=== PATIENT | female | born 1955 | race African-American/Black ===

== ENCOUNTER 2017-04-29 13:44 | Emergency (ER) | payer MEDICARE, MEDICAID ==
[2017-04-29] MEDS ORDERED: Adenosine 6 MG/2 ML VIAL ONE (13:50)
[2017-04-29] MEDS ORDERED: Sodium Chloride 0.9% 100 ML ONE (13:52)
[2017-04-29] MEDS ORDERED: cefTRIAXone\\ROCEPHIN 2 GM VIAL ONE (13:52)
[2017-04-29] MEDS ORDERED: Lorazepam 2 MG/ML VIAL ONE (14:06)
[2017-04-29] MEDS ORDERED: Fentanyl 100 MCG/2 ML VIAL ONE (14:06)
[2017-04-29 14:07] LABS: #Basophils 0.2 thou/uL (0.0-0.2); #Lymphocytes 1.7 thou/uL (1.20-3.40); #Monocytes 0.5 thou/uL (0.11-0.59); #Neutrophils 5.5 thou/uL (1.40-6.50); %Basophils 2.4 % (0.0-1.0); %Eosinophils 0.2 % (0.0-10.0); %Lymphocytes 21.7 % (21.0-51.0); %Monocytes 6.6 % (0.0-10.0); Hemoglobin 12.4 g/dL (12.0-16.0); Mean Corpuscular HGB CONC 32.4 g/dL (32.0-36.0); Mean Corpuscular Hemoglobin 27.3 pg (27.0-31.0); Mean Corpuscular Volume 84.3 fl (81.0-99.0); Mean Platelet Volume 8.4 fL (7.4-10.4); Platelet Count 291 thou/uL (130-400); RBC Distribution Width 14.4 % (11.5-14.5); Red Blood Cell (RBC) Count 4.55 mill/uL (4.20-5.40)
[2017-04-29 14:11] LABS: INR-International Normal Ratio 1.2; Prothrombin Time 15.5 SEC (12.0-14.7)
[2017-04-29 14:14] LABS: ALT (SGPT) 13 U/L (8-55); AST (SGOT) 21 U/L (5-34); Albumin 3.8 g/dL (3.4-4.8); Alkaline Phosphatase 95 U/L (40-150); Anion Gap 23 mmol/L (10-20); BUN (Urea Nitrogen) 16 mg/dL (9.8-20.1); Bilirubin, Total 0.6 mg/dL (0.2-1.2); CK (CPK) 180 U/L (29-168); Calc. Creatinine Clearance 0 mL/min (70-130); Calcium 8.8 mg/dL (7.8-10.44); Carbon Dioxide 18 mmol/L (23-31); Chloride 101 mmol/L (98-107); Estimated GFR-MDRD 36; Glucose 212 mg/dL (80-115); Potassium 3.8 mmol/L (3.5-5.1); Protein, Total 6.8 g/dL (6.0-8.3); Sodium 138 mmol/L (136-145)
[2017-04-29 14:15] LABS: CKMB 0.9 ng/mL (0-6.6); Troponin I 0.035 ng/mL (< 0.028)
[2017-04-29 14:18] LABS: PTT 27.5 SEC (22.9-36.1)
[2017-04-29 14:27] LABS: Bilirubin Negative (Negative); Blood, Urine Negative (Negative); Clarity Clear (Clear); Glucose, Urine (Dipstick) Negative (Negative); Leukocyte Negative (Negative); Nitrite Negative (Negative); Protein, Urine (Dipstick) Negative (Neg-Trace); Urobilinogen 0.2 mg/dL (0.2-1.0); pH, Urine 5.5 (5.0-9.0)
[2017-04-29 14:28] LABS: Specific Gravity, Urine 1.008 (1.005-1.030)
--- NOTE | 2017-04-29 19:48 | RAD ---
PORTABLE CHEST 04/29/17 An AP portable film at 1346 is compared with a 11/02/16 study done at [facility]. Mild cardiomegaly is present. There appears to be an infiltrate in the right base medially. The jarett ent has been intubated. The tip of the endotracheal tube currently appears to be above the courtney bu t probably just barely. A better centered picture is recommended to recheck it. The left lung is rel atively clear. IMPRESSION: 1. Potential low positioning of the endotracheal tube. 2. Mild cardiomegaly. 3. Right basilar infiltrate medially. POS: HOME
--- NOTE | 2017-04-29 19:50 | CT ---
CT OF THE BRAIN WITHOUT CONTRAST 04/29/[address] was done emergently for mental status changes. The ventricles are normal in size wi th no shift. No intracranial bleeding was noted. There is some motion artifact and streak artifact w hich degrades the images, but no gross stroke, edema, bleed or mass could be seen. The visible paran rainer sinuses are clear. A tiny white dot in the right cerebral peduncle of the mid brain is felt to be more likely artifact than not. IMPRESSION: Mildly limited study showing no acute findings. POS: HOME
== END 2017-04-29 14:53 | disposition short-term general hospital (02) ==
LOC: BURERS 13:44
DX: T67.0XXA Heatstroke and sunstroke, initial encounter (principal); R56.9 Unspecified convulsions; E11.9 Type 2 diabetes mellitus without complications; I10 Essential (primary) hypertension; J45.909 Unspecified asthma, uncomplicated; F31.9 Bipolar disorder, unspecified; F20.9 Schizophrenia, unspecified
CPT/HCPCS: 31500; 36415; 51702; 70450; 71010; 80053; 81003; 82550; 82553; 83605; 84484; 85025; 85610; 85730; 87040; 87077; 87086; 87149; 87186; 93005; 94002; 94760; 96365; 96375; J0153; J0696; J2060; J3010; J7050

== ENCOUNTER 2017-06-08 11:14 | Emergency (ER) | payer MEDICARE, MEDICAID ==
[2017-06-08] MEDS ORDERED: Ibuprofen 800 MG TAB ONE (11:36)
[2017-06-08] MEDS ORDERED: HYDROcodone/Acetaminophen 10/325 mg Tablet ONE (11:36)
--- NOTE | 2017-06-08 13:17 | RAD ---
RIGHT KNEE 4 VIEWS: HISTORY: Injury, right knee pain. FINDINGS/IMPRESSION: There are extensive degenerative changes in the knee joint. A joint effusion is present. No acute fracture or dislocation is identified. POS: [facility]
--- NOTE | 2017-06-08 13:17 | RAD ---
RIGHT HIP 2 VIEWS: HISTORY: Injury, right hip pain. FINDINGS: There are degenerative changes in the right hip joint. No fracture or dislocation is identified. IMPRESSION: No acute finding or dislocation is identified. POS: JACE
== END 2017-06-08 12:29 | disposition home or self-care (01) ==
LOC: BURERS 11:14
DX: M17.11 Unilateral primary osteoarthritis, right knee (principal); M16.11 Unilateral primary osteoarthritis, right hip; I10 Essential (primary) hypertension; J45.909 Unspecified asthma, uncomplicated; F31.9 Bipolar disorder, unspecified; F20.9 Schizophrenia, unspecified; E11.9 Type 2 diabetes mellitus without complications; Z79.84 Long term (current) use of oral hypoglycemic drugs; Z79.899 Other long term (current) drug therapy

== ENCOUNTER 2017-07-17 12:46 | Emergency (ER) | payer MEDICARE, MEDICAID ==
[2017-07-17 13:23] LABS: Bilirubin Negative (Negative); Blood, Urine Negative (Negative); Clarity Cloudy (Clear); Glucose, Urine (Dipstick) Negative (Negative); Leukocyte Large (Negative); Nitrite Positive (Negative); Protein, Urine (Dipstick) Negative (Neg-Trace); Urobilinogen 0.2 mg/dL (0.2-1.0)
[2017-07-17 13:25] LABS: #Basophils 0.1 thou/uL (0.0-0.2); #Eosinphils 0.1 thou/uL (0.0-0.7); #Lymphocytes 1.2 thou/uL (1.20-3.40); #Neutrophils 6.6 thou/uL (1.40-6.50); %Basophils 1.1 % (0.0-1.0); %Eosinophils 0.6 % (0.0-10.0); %Lymphocytes 12.9 % (21.0-51.0); %Neutrophils 74.4 % (42.0-75.0); Hemoglobin 12.1 g/dL (12.0-16.0); Mean Corpuscular HGB CONC 33.4 g/dL (32.0-36.0); Mean Corpuscular Hemoglobin 28.8 pg (27.0-31.0); Mean Corpuscular Volume 86.2 fl (81.0-99.0); Mean Platelet Volume 8.7 fL (7.4-10.4); Platelet Count 248 thou/uL (130-400); RBC Distribution Width 14.4 % (11.5-14.5); White Blood Cell (WBC) Count 8.9 thou/uL (4.8-10.8)
[2017-07-17 13:28] LABS: Specific Gravity, Urine 1.008 (1.005-1.030)
[2017-07-17 13:31] LABS: Bacteria/HPF 2+ HPF (None Seen); Crystals/HPF 1+ AMORPH URATES HPF (Negative); RBC/HPF None Seen HPF (0-3)
[2017-07-17 13:35] LABS: ALT (SGPT) 15 U/L (8-55); AST (SGOT) 16 U/L (5-34); Alkaline Phosphatase 101 U/L (40-150); Anion Gap 19 mmol/L (10-20); BUN (Urea Nitrogen) 30 mg/dL (9.8-20.1); Bilirubin, Total 0.5 mg/dL (0.2-1.2); Calc. Creatinine Clearance 0 mL/min (70-130); Calcium 9.5 mg/dL (7.8-10.44); Carbon Dioxide 23 mmol/L (23-31); Chloride 100 mmol/L (98-107); Estimated GFR-MDRD 40; Globulin 2.9 g/dL (2.4-3.5); Glucose 109 mg/dL (80-115); Potassium 3.6 mmol/L (3.5-5.1); Protein, Total 6.9 g/dL (6.0-8.3); Sodium 138 mmol/L (136-145)
[2017-07-17] MEDS ORDERED: Sodium Chloride 0.9% 100 ML ONE (13:35)
[2017-07-17] MEDS ORDERED: cefTRIAXone\\ROCEPHIN 1 GM VIAL ONE (13:35)
== END 2017-07-17 14:51 | disposition home or self-care (01) ==
LOC: BURERS 12:46
DX: N39.0 Urinary tract infection, site not specified (principal); G93.40 Encephalopathy, unspecified; I10 Essential (primary) hypertension; J45.909 Unspecified asthma, uncomplicated; E11.9 Type 2 diabetes mellitus without complications; F31.9 Bipolar disorder, unspecified; F20.9 Schizophrenia, unspecified
CPT/HCPCS: 36415; 51701; 80053; 81003; 81015; 84443; 85025; 87077; 87086; 87186; 96365; A4353; J0696; J7050

== ENCOUNTER 2017-08-15 19:31 | Emergency (ER) | payer MEDICARE, MEDICAID ==
[2017-08-15 20:14] LABS: Bilirubin Negative (Negative); Blood, Urine Negative (Negative); Clarity Clear (Clear); Glucose, Urine (Dipstick) Negative (Negative); Leukocyte Small (Negative); Nitrite Negative (Negative); Protein, Urine (Dipstick) Negative (Neg-Trace)
[2017-08-15 20:16] LABS: Specific Gravity, Urine 1.006 (1.002-1.036)
[2017-08-15 20:23] LABS: Acanthocytes SLIGHT = 1-5 cells (100X) (None Seen); Elliptocytes SLIGHT = 2-5 cells (100X) (0-1/hpf); Eosinophils 3 % (0-10); Lymphocytes 20 % (21-51); MDiff Complete? YES; Mean Corpuscular HGB CONC 30.6 g/dL (32.0-36.0); Mean Corpuscular Hemoglobin 27.2 pg (27.0-31.0); Mean Corpuscular Volume 88.9 fl (81.0-99.0); Mean Platelet Volume 8.3 fL (7.4-10.4); Monocytes 8 % (0-10); Neutrophil 69 % (42-75); Platelet Count 352 thou/uL (130-400); RBC Distribution Width 14.7 % (11.5-14.5); Red Blood Cell (RBC) Count 4.05 mill/uL (4.20-5.40); Rouleaux Formation MODERATE= 6-15 cells (100X) (None Seen); White Blood Cell (WBC) Count 6.2 thou/uL (4.8-10.8)
[2017-08-15 20:25] LABS: ALT (SGPT) 12 U/L (8-55); AST (SGOT) 19 U/L (5-34); Albumin 3.6 g/dL (3.4-4.8); Alkaline Phosphatase 90 U/L (40-150); Anion Gap 16 mmol/L (10-20); BUN (Urea Nitrogen) 12 mg/dL (9.8-20.1); Bilirubin, Total 0.3 mg/dL (0.2-1.2); Calc. Creatinine Clearance 0 mL/min (70-130); Calcium 9.4 mg/dL (7.8-10.44); Carbon Dioxide 22 mmol/L (23-31); Chloride 107 mmol/L (98-107); Estimated GFR-MDRD 90; Globulin 2.8 g/dL (2.4-3.5); Glucose 105 mg/dL (80-115); Potassium 4.2 mmol/L (3.5-5.1); Protein, Total 6.4 g/dL (6.0-8.3); Sodium 141 mmol/L (136-145)
[2017-08-15 20:25] LABS: Bacteria/HPF 4+ HPF (None Seen); Crystals/HPF None Seen HPF (Negative); Hyaline Casts/LPF NONE SEEN LPF (0-3 Hyaline); Other Casts/LPF None Seen LPF (0-3 Hyaline); Oval Fat Bodies/HPF None Seen HPF (None Seen); RBC/HPF None Seen HPF (0-3); Renal Epithelial None Seen HPF (0-3); Sperm/HPF None Seen HPF (None Seen); Squamous Epithelial 0-3 HPF (0-3); Transitional Epithelial NONE SEEN HPF (0-3); Trichomonas/HPF None Seen HPF (None Seen); Yeast-All Forms None Seen HPF (None Seen)
[2017-08-15] MEDS ORDERED: cefTRIAXone\\ROCEPHIN 1 GM VIAL ONE (20:31)
--- NOTE | 2017-08-15 23:51 | RAD ---
PORTABLE CHEST 08/15/2017 An AP portable film at 2006 hours is compared with a 05/01/2017 study done at [facility]. The heart is enlarged but no more so than before. There are no congestive changes today. No large pleural effusions are present. The prominent perihilar areas, particularly on the right mentioned b efore, are not nearly as much so today. There is still some slight right hilar prominence that woul d ultimately take a CT to completely clear. Nevertheless, the appearance of the chest is much impro thais with respect to the April study. IMPRESSION: Cardiomegaly without congestive change. See other comments above. Overall, the chest is improved dr amatically since April. POS: HOME
== END 2017-08-15 21:09 | disposition home or self-care (01) ==
LOC: BURERS 19:31
DX: N39.0 Urinary tract infection, site not specified (principal); J45.909 Unspecified asthma, uncomplicated; E11.9 Type 2 diabetes mellitus without complications; I10 Essential (primary) hypertension; F31.9 Bipolar disorder, unspecified; F20.9 Schizophrenia, unspecified; Z79.84 Long term (current) use of oral hypoglycemic drugs; Z79.899 Other long term (current) drug therapy
CPT/HCPCS: 51701; 71010; 80053; 81003; 81015; 85025; 87077; 87086; 87186; 96365; J0696

== ENCOUNTER 2017-11-27 09:55 | Emergency (ER) | payer MEDICARE, MEDICAID ==
[2017-11-27 10:31] LABS: Bilirubin Negative (Negative); Blood, Urine Negative (Negative); Clarity Clear (Clear); Glucose, Urine (Dipstick) Negative (Negative); Leukocyte Trace (Negative); Nitrite Negative (Negative); Protein, Urine (Dipstick) Negative (Neg-Trace); Urobilinogen 0.2 mg/dL (0.2-1.0); pH, Urine 5.5 (5.0-9.0)
[2017-11-27 10:45] LABS: Bacteria/HPF Rare-Few HPF (None Seen); RBC/HPF None Seen HPF (0-3); Squamous Epithelial 0-3 HPF (0-3); WBC/HPF 0-3 HPF (0-3)
== END 2017-11-27 11:08 | disposition home or self-care (01) ==
LOC: BURERS 09:55
DX: N39.0 Urinary tract infection, site not specified (principal); E11.9 Type 2 diabetes mellitus without complications; I10 Essential (primary) hypertension; J45.909 Unspecified asthma, uncomplicated; F31.9 Bipolar disorder, unspecified; F20.9 Schizophrenia, unspecified
CPT/HCPCS: 51701; 81003; 81015; 87086; A4353

== ENCOUNTER 2018-12-22 13:19 | Emergency (ER) | payer MEDICARE, MEDICAID ==
[2018-12-22] MEDS ORDERED: Ketorolac Tromethamine 60 MG/2 ML VIAL ONE (14:04)
[2018-12-22] MEDS ORDERED: traMADol HCl 50 MG TAB ONE (14:04)
--- NOTE | 2018-12-22 15:17 | RAD ---
LEFT KNEE 2 VIEWS: Date: 12/22/18 Severe arthritic changes are present in the knee. There is medial joint space narrowing and very larg e osteophytes in the knee joint itself. There is an even larger osteophyte present in the patellofemo ral joint, originating from the superior pole of the patella. Posteriorly, there appear to be joint l oose bodies present. IMPRESSION: Severe arthritic changes with loose bodies. POS: HOME
== END 2018-12-22 14:12 | disposition home or self-care (01) ==
LOC: BURERS 13:19
DX: S80.02XA Contusion of left knee, initial encounter (principal); E11.9 Type 2 diabetes mellitus without complications; I10 Essential (primary) hypertension; J45.909 Unspecified asthma, uncomplicated; F20.9 Schizophrenia, unspecified; F31.9 Bipolar disorder, unspecified; W19.XXXA Unspecified fall, initial encounter
CPT/HCPCS: 96372; J1885